=== PATIENT | female | born 1990 | race Hispanic/Latino ===

== ENCOUNTER 2019-03-12 18:16 | Emergency (ER) | payer MEDICAID ==
[2019-03-12 18:54] LABS: BASOPHILS % (AUTO) 0.5 % (0.0-5.0); EOSINOPHILS % (AUTO) 1.5 % (0.0-8.0); HEMATOCRIT 50.7 % (36-48); LYMPHOCYTES % (AUTO) 16.6 % (21.0-51.0); MEAN CORPUSCULAR HEMOGLOBIN 29.8 pg (27.0-33.0); MEAN CORPUSCULAR HGB CONC 33.8 g/dL (32.0-36.0); MEAN CORPUSCULAR VOLUME 88.2 fL (79-99); MONOCYTES % (AUTO) 3.7 % (3.0-13.0); NEUTROPHILS % (AUTO) 77.7 % (40.0-77.0); PLATELET COUNT (AUTO) 337 K/uL (130-400); RED BLOOD CELL COUNT(AUTO) 5.75 MIL/uL (4.00-5.50); RED CELL DISTRIBUTION WIDTH 13.7 % (11.0-15.5); WHITE BLOOD COUNT (AUTO) 13.2 K/uL (4.8-10.8)
[2019-03-12 18:58] LABS: BILIRUBIN,URINE Moderate (NEGATIVE); COLOR,URINE Dark Yellow (YELLOW); GLUCOSE, URINE (UA) Negative (NEGATIVE); KETONES,URINE Trace mg/dL (NEGATIVE); LEUKOCYTE ESTERASE ,URINE Small (NEGATIVE); NITRATE,URINE Positive (NEGATIVE); OCCULT BLOOD,URINE Trace (NEGATIVE); PH,URINE 5.5 (5.0-8.0); PROTEIN,URINE 300 mg/dL (NEGATIVE)
[2019-03-12 18:59] LABS: APPEARANCE,URINE CLOUDY (CLEAR)
[2019-03-12 19:00] LABS: HCG,QUAL RESULT NEGATIVE (NEGATIVE)
[2019-03-12 19:05] LABS: CREATININE 0.9 mg/dL (0.5-1.5); POTASSIUM 3.5 mmol/L (3.5-5.1)
[2019-03-12 19:05] LABS: AMPHET/METH SCREEN,URINE NEGATIVE (NEGATIVE); BARBITURATE SCREEN, URINE NEGATIVE (NEGATIVE); BENZODIAZEPINES SCREEN,URINE NEGATIVE (NEGATIVE); CANNABINOID SCREEN,URINE NEGATIVE (NEGATIVE); COCAINE SCREEN,URINE NEGATIVE (NEGATIVE); OPIATE SCREEN,URINE NEGATIVE (NEGATIVE); PHENCYCLIDINE SCREEN,URINE NEGATIVE (NEGATIVE)
[2019-03-12 19:09] LABS: ALBUMIN 3.6 g/dL (3.5-5.0); BILIRUBIN,TOTAL 1.2 mg/dL (0.2-1.0); TOTAL PROTEIN, SERUM 7.2 g/dL (6.0-8.3)
[2019-03-12] MEDS ORDERED: SODIUM CHLORIDE 0.9% 1000ML 1,000 ML IV ONE (19:12)
[2019-03-12 19:19] LABS: BACTERIA,URINE Moderate /HPF (None Seen); SQUAMOUS EPITHELIAL CELL,UR Moderate /HPF (0-2)
[2019-03-12 19:22] LABS: MUCUS,URINE Moderate LPF (None Seen)
== END 2019-03-12 19:48 | disposition home or self-care (01) ==
LOC: EDH 18:16
DX: T67.1XXA Heat syncope, initial encounter (principal); N39.0 Urinary tract infection, site not specified; Z98.890 Other specified postprocedural states; X58.XXXA Exposure to other specified factors, initial encounter; Y93.89 Activity, other specified; Y92.89 Other specified places as the place of occurrence of the external cause; Y99.8 Other external cause status
CPT/HCPCS: 36415; 80053; 80305; 81001; 81025; 85025; 93005; 99285; J7030

== ENCOUNTER 2019-07-27 12:14 | Emergency (ER) | payer MEDICAID, OTHER ==
[2019-07-27 12:38] LABS: BASOPHILS % (AUTO) 1.5 % (0.0-5.0); EOSINOPHILS % (AUTO) 3.5 % (0.0-8.0); HEMATOCRIT 40.3 % (36-48); LYMPHOCYTES % (AUTO) 27.8 % (21.0-51.0); MEAN CORPUSCULAR HEMOGLOBIN 29.1 pg (27.0-33.0); MEAN CORPUSCULAR HGB CONC 33.9 g/dL (32.0-36.0); MEAN CORPUSCULAR VOLUME 85.9 fL (79-99); NEUTROPHILS % (AUTO) 53.2 % (40.0-77.0); NUCLEATED RED BLOOD CELLS 0.1 % (0.0-0.19); PLATELET COUNT (AUTO) 268 K/uL (130-400); RED BLOOD CELL COUNT(AUTO) 4.69 MIL/uL (4.00-5.50); RED CELL DISTRIBUTION WIDTH 13.8 % (11.0-15.5); WHITE BLOOD COUNT (AUTO) 5.3 K/uL (4.8-10.8)
[2019-07-27 12:43] LABS: APPEARANCE,URINE Cloudy (CLEAR); BILIRUBIN,URINE Negative (NEGATIVE); COLOR,URINE Yellow (YELLOW); GLUCOSE, URINE (UA) Negative (NEGATIVE); KETONES,URINE 15 mg/dL (NEGATIVE); LEUKOCYTE ESTERASE ,URINE Trace (NEGATIVE); NITRATE,URINE Negative (NEGATIVE); OCCULT BLOOD,URINE Negative (NEGATIVE); PH,URINE 6.5 (5.0-8.0); PROTEIN,URINE Negative (NEGATIVE)
[2019-07-27 12:47] LABS: CREATININE 0.8 mg/dL (0.5-1.5); POTASSIUM 3.9 mmol/L (3.5-5.1)
[2019-07-27 12:51] LABS: HCG,QUAL RESULT NEGATIVE (NEGATIVE)
[2019-07-27 12:52] LABS: ALBUMIN 3.4 g/dL (3.5-5.0); BILIRUBIN,TOTAL 0.6 mg/dL (0.2-1.0); TOTAL PROTEIN, SERUM 6.9 g/dL (6.0-8.3)
[2019-07-27 12:58] LABS: BACTERIA,URINE Rare /HPF (None Seen); MUCUS,URINE Rare LPF (None Seen); RBC,URINE 0-1 /HPF (0-1); SQUAMOUS EPITHELIAL CELL,UR Rare /HPF (0-2); WBC,URINE 0-1 /HPF (0-1)
[2019-07-27] MEDS ORDERED: ACETAMINOPHEN EXTRA STRENGTH 500 MG TABLET ONE (13:31)
== END 2019-07-27 13:42 | disposition home or self-care (01) ==
LOC: EDH 12:14
DX: J10.1 Influenza due to other identified influenza virus with other respiratory manifestations (principal); Z87.891 Personal history of nicotine dependence; Z98.890 Other specified postprocedural states
CPT/HCPCS: 36415; 80053; 81001; 81025; 85025; 87804

== ENCOUNTER 2024-07-28 14:19 | Emergency (ER) | payer SELFPAY ==
[~2024-07-28] VITALS: Ht 160 cm; Wt 113.4 kg
[2024-07-28 15:49] LABS: BASOPHILS # (AUTO) 0.06 K/uL (0.00-0.20); BASOPHILS % (AUTO) 0.4 % (0.0-5.0); EOSINOPHILS # (AUTO) 0.01 K/uL (0.00-0.70); EOSINOPHILS % (AUTO) 0.1 % (0.0-8.0); HEMATOCRIT 34.7 % (36-48); LYMPHOCYTES # (AUTO) 1.5 K/uL (1.0-4.8); LYMPHOCYTES % (AUTO) 9.3 % (21.0-51.0); MEAN CORPUSCULAR HEMOGLOBIN 20.4 pg (27.0-33.0); MEAN CORPUSCULAR VOLUME 68.2 fL (79-99); MONOCYTES # (AUTO) 1.2 K/uL (0.1-1.0); MONOCYTES % (AUTO) 7.4 % (3.0-13.0); NEUTROPHILS # (AUTO) 13.2 K/uL (1.8-7.7); NEUTROPHILS % (AUTO) 82.2 % (40.0-77.0); PLATELET COUNT (AUTO) 463 K/uL (130-400); RED BLOOD CELL COUNT(AUTO) 5.09 MIL/uL (4.00-5.50); RED CELL DISTRIBUTION WIDTH 18.8 % (11.0-15.5); WHITE BLOOD COUNT (AUTO) 16.1 K/uL (4.8-10.8)
[2024-07-28 16:03] LABS: CREATININE 0.9 mg/dL (0.5-1.0); POTASSIUM 3.4 mmol/L (3.5-5.1)
[2024-07-28 16:07] LABS: RAPID GROUP A STREP negative (NEGATIVE)
[2024-07-28 16:11] LABS: COVID19 (SARS ANTIGEN RAPID) PRESUMPTIVE NEGATIVE (NEGATIVE); INFLUENZA TYPE A Negative For Type A (NEGATIVE); INFLUENZA TYPE B Negative For Type B (NEGATIVE)
--- NOTE | 2024-07-28 16:21 | HMCIMG ---
CHEST 1VW REASON: sob COMPARISON: 08/08/2017 FINDINGS: There is perihilar infiltrate on the right extending into the right lower lobe, consistent with pneumonia. Left lung is clear. Heart size is normal. There is no vascular congestion or pleural effusion. IMPRESSION: 1. Infiltrate in right perihilar region extending into the right lower lobe consistent with pneumonia.
--- NOTE | 2024-07-28 16:32 | ERN ---
General Chief Complaint: Fever Stated Complaint: BODY AND HEAD PAIN, CHILLS, FEVER, NAUSEA,COUGH Time Seen by MD: 14:27 Time Seen by Midlevel: 14:27 Source: patient History of Present Illness Initial Comments Patient is a 34-year-old female with no significant past medical history presenting to the emergency department with complaints of intermittent fevers, generalized body weakness, cough and congestion since Saturday x3 days ago. Patient reports recorded fevers at home as high as 103.0. Denies any sick contacts. Denies any other concerns at this time. Allergies: Coded Allergies: No Known Drug Allergies (Unverified Allergy, Unknown, 07/28/24) Home Meds Active Scripts Methylprednisolone (Medrol) 4 Mg Tab.ds.pk, 1 TAB PO AD for 6 Days, #21 TAB 0 Refills 6 on day 1 then reduce by one tablet daily until gone Prov:EVELYN ASH 07/28/24 Azithromycin (Azithromycin) 250 Mg Tablet, 1 TAB PO AD for 5 Days, #6 TAB 0 Refills 2 the first day followed by 1 for days 2-5 Prov:EVELYN ASH 07/28/24 Amoxicillin/Potassium Clav (Amox Tr-K Clv 875-125 mg Tab) 875 Mg-125 Mg Tablet, 1 EACH PO BID for 7 Days, #14 TAB 0 Refills Prov:EVELYN ASH 07/28/24 Past Medical History Past Medical History: No Pertinent History Past Surgical History: ROS Dictation CONSTITUTIONAL: Negative except for HPI HEAD/FACE: Negative except for HPI EENT: Negative except for HPI RESPIRATORY: Negative except for HPI GASTROINTESTINAL/ABDOMINAL: Negative except for HPI GENITOURINARY: Negative except for HPI MUSCULOSKELETAL: Negative except for HPI INTEGUMENTARY: Negative except for HPI NEUROLOGICAL/PSYCH: Negative except for HPI HEMATOLOGIC/LYMPHATIC: Negative except for HPI All Systems Negative, Except as noted above. 13 point review of systems assessed and all negative except for above. Physical Exam Physical Exam Dictation Vital Signs reviewed General Appearance: Alert, oriented x 3, no acute distress, well developed, nourished. Head and Face: non-traumatic. Eyes: PERRL, pink conjunctivas, eyelid no trauma, anterior chamber with arcus senilis. Ears: Pinnas intact and no signs of trauma or erythema ear canals clear and no discharge TM no erythema Nose: No discharge, no bleeding. Oropharynx: Mouth normal, tongue pink, pharynx clear,no erythema, tonsils no exudates, no abscesses noted, mucous membrane moist Neck: Supple, non-tender, no thyromegaly, no masses, no JVD, no bruits Breast:Deferred Chest:No tenderness, no crepitus, no paradoxical movement, no retractions Lungs:Clear, well-ventilated, symmetric, no rales, no wheezing, no rhonchi, no stridor, good breath sounds bilaterally Heart: Regular rate, regular rhythm, no murmur, no gallops Vascular: no peripheral edema, Abdomen: Soft, positive bowel sounds, nondistended, no guarding, nontender, no rebound, no masses no hepatomegaly, no splenomegaly, no Burnette's sign, no hernias. Rectal: Deferred Genital: Deferred Neurological: Normal speech, motor function intact, sensory function intact Musculoskeletal: Neck nontender, full range of motion, back nontender, full range of motion, Extremities: nontender, full range of motion Skin: Color pink, dry, no turgor, no rash, no lacerations, no abrasions, no contusions. Lymphatic: Deferred Results Laboratory and Microbiology Lab and Micro Result Laboratory Tests Test 07/28/24 15:06 07/28/24 15:25 Influenza Type A Antigen Negative For Type A Influenza Type B Antigen Negative For Type B SARS-CoV-2 Antigen (Rapid) PRESUMPTIVE NEGATIVE Group A Streptococcus Rapid negative (NEGATIVE) White Blood Count 16.1 K/uL (4.8-10.8) H Red Blood Count 5.09 MIL/uL (4.00-5.50) Hemoglobin 10.4 g/dL (12.0-16.0) L Hematocrit 34.7 % (36-48) L Mean Corpuscular Volume 68.2 fL (79-99) L Mean Corpuscular Hemoglobin 20.4 pg (27.0-33.0) L Mean Corpuscular Hemoglobin Concent 30.0 g/dL (32.0-36.0) L Red Cell Distribution Width 18.8 % (11.0-15.5) H Platelet Count 463 K/uL (130-400) H Mean Platelet Volume 10.7 fL (7.5-10.5) H Immature Granulocyte % (Auto) 0.6 % (0-1) Neutrophils (%) (Auto) 82.2 % (40.0-77.0) H Lymphocytes (%) (Auto) 9.3 % (21.0-51.0) L Monocytes (%) (Auto) 7.4 % (3.0-13.0) Eosinophils (%) (Auto) 0.1 % (0.0-8.0) Basophils (%) (Auto) 0.4 % (0.0-5.0) Neutrophils # (Auto) 13.2 K/uL (1.8-7.7) H Lymphocytes # (Auto) 1.5 K/uL (1.0-4.8) Monocytes # (Auto) 1.2 K/uL (0.1-1.0) H Eosinophils # (Auto) 0.01 K/uL (0.00-0.70) Basophils # (Auto) 0.06 K/uL (0.00-0.20) Absolute Immature Granulocyte (auto 0.10 K/uL (0-1) Nucleated Red Blood Cells 0.0 % (0.0-0.19) White Cell Morphology Comment See comments Red Blood Cell Morphology See comments Sodium Level 133 mmol/L (136-145) L Potassium Level 3.4 mmol/L (3.5-5.1) L Chloride Level 97 mmol/L (101-111) L Carbon Dioxide Level 27 mmol/L (21-32) Blood Urea Nitrogen 10 mg/dL (7-18) Creatinine 0.9 mg/dL (0.5-1.0) Glomerular Filtration Rate Calc 85 mL/min (>90) Random Glucose 112 mg/dL (70-105) H Lactic Acid Level 1.8 mmol/L (0.8-2.5) Total Calcium 9.0 mg/dL (8.5-10.1) Troponin I High Sensitivity 7 ng/L (4-50) Procalcitonin 0.13 ng/mL (0.05-0.5) Serum Test, Qualitative NEGATIVE (NEGATIVE) Labs Reviewed?: Yes MDM MDM: Patient is a 34-year-old female with no significant past medical history presenting to the emergency department with complaints of intermittent fevers, generalized body weakness, cough and congestion since Saturday x3 days ago. Patient reports recorded fevers at home as high as 103.0. Denies any sick contacts. Denies any other concerns at this time. On physical examination patient is in no acute distress. Lung examination reveals crackles to the right lower lobe however the remainder of her physical examination is unremarkable. Her initial vital signs are remarkable for a temperature of 101.3. A heart rate of 116 beats per minute. A blood pressure of 122/78. O2 saturation is 98% on room air. On physical examination patient is in no acute respiratory distress. Given that patient is tachycardic and febrile sepsis alert was called overhead any full septic workup was initiated. Initial CBC shows a white count of 16.1. Hemoglobin is stable at 10.4. Platelet count is 463. Her chemistries reveal a sodium of 133, potassium of 3.4, and a chloride of 97. Lactic acid is normal at 1.8. Procalcitonin is negative. Her cardiac enzymes are negative. Her respiratory swabs are negative. Her chest x-ray does reveal a consolidation of the right lower lobe which is consistent with pneumonia. Given that patient is not in any respiratory distress. She has a curb 65 score of 0. Patient will be treated outpatient. In the emergency department she was given 1 g of Rocephin along with IV fluids. Patient will be discharged home on Augmentin and azithromycin. She was advised that if she does not improve over the next [id number] hours she was to report to the ER for further evaluation. Differential diagnosis: Pneumonia, viral syndrome, upper respiratory infection, strep There are no social concerns with this patient. Prescription drug management Prescriptions will include: Amoxicillin and azithromycin Medical management and examination interpretation discussions were had by me with other qualified healthcare professionals as indicated for the patient's care. ED Course Orders Procedure Category Date Status Time Covid19 (Sars Antigen LAB 07/28/24 Complete Rapid) 15:03 Influenza Type A & B, LAB 07/28/24 Complete Rapid 15:03 Rapid (Group A Strep) LAB 07/28/24 Complete 15:03 Cbc With Differential LAB 07/28/24 Complete 15:05 Basic Metabolic Panel LAB 07/28/24 Complete 15:05 Blood Cult DENNIS 07/28/24 In Process 15:05 Chest 1vw RAD 07/28/24 Resulted 15:05 Lactic Acid LAB 07/28/24 Complete 15:05 Procalcitonin LAB 07/28/24 Complete 15:05 Troponin I High LAB 07/28/24 Complete Sensitivity 15:05 Testing, LAB 07/28/24 Complete Serum Hcg 15:05 Acetaminophen 500mg PHA 07/28/24 Complete Tab (Tylenol 500mg T 15:30 0.9%Nacl 1000ml (Ns PHA 07/28/24 Complete 1000ml) 16:30 Ceftriaxone 1g Vial PHA 07/28/24 Complete (Rocephine 1g Inj) 16:30 Ketorolac PHA 07/28/24 Complete Tromethamine 15mg/Ml 16:30 Current Medications Medications (Trade) Dose Ordered Sig/Nkechi Route PRN Reason Start Time Stop Time Status Last Admin Dose Admin Acetaminophen (TYLenol 500MG TAB) 1,000 mg ONCE ONCE PO 07/28/24 15:30 07/28/24 15:31 DC 07/28/24 18:26 Ceftriaxone Sodium (ROCEphine 1G INJ) 1 gm ONCE ONCE IVPB 07/28/24 16:30 07/28/24 16:31 DC 07/28/24 18:26 Ketorolac Tromethamine (toRADol) 15 mg ONCE ONCE IV 07/28/24 16:30 07/28/24 16:31 DC 07/28/24 18:26 Sodium Chloride 1,000 ml @ 0 mls/hr ONCE ONCE IV 07/28/24 16:30 07/28/24 16:31 DC 07/28/24 18:26 Vital Signs Date Time Temp Pulse Resp B/P (MAP) Pulse Ox O2 Delivery O2 Flow Rate FiO2 07/28/24 20:10 100.4 90 20 105/61 98 Room Air* 0 07/28/24 19:50 100.8 98 20 109/51 98 Room Air* 0 07/28/24 19:11 101.5 98 20 113/67 100 Room Air* 0 07/28/24 18:34 102.9 114 22 108/44 99 Room Air* 0 07/28/24 14:58 101.3 116 16 122/78 98 Room Air* 0 07/28/24 14:58 101.3 116 22 122/78 98 Room Air 0 5:13 PM Patient remains in the lobby. Anitibiotics ordered at 4:31PM. Pt has not received IV fluids, Tylenol, Ketorolac, or Rocephin. X-ray shows a right lower lobe pneumonia. [facility] [address] [address] IMAGING REPORT Signed PATIENT: RACHEL DAVIDSON MR#: [id number] : 1990 SEX: F AGE: 34 LOCATION: [facility] ORDER 06 STATUS: REG ER REPORT#: [id number] SERVICE 150 REASON: sob ORDERING PHYSICIAN: EVELYN ASH PROCEDURE: CXR1VW - CHEST 1VW CHEST 1VW REASON: sob COMPARISON: 08/08/2017 FINDINGS: There is perihilar infiltrate on the right extending into the right lower lobe, consistent with pneumonia. Left lung is clear. Heart size is normal. There is no vascular congestion or pleural effusion. IMPRESSION: 1. Infiltrate in right perihilar region extending into the right lower lobe consistent with pneumonia. DICTATED BY: AZAR OROZCO MD DATE: 07/28/241617 ELECTRONICALLY SIGNED BY: AZAR OROZCO MD DATE: 07/28/24 162 DX & DISP Disposition: Discharge Departure Impression: Primary Impression: Pneumonia Condition: Stable Scripts Methylprednisolone (Medrol) 4 Mg Tab.ds.pk 1 TAB PO AD for 6 Days, #21 TAB 0 Refills 6 on day 1 then reduce by one tablet daily until gone Prov: EVELYN ASH 07/28/24 Azithromycin (Azithromycin) 250 Mg Tablet 1 TAB PO AD for 5 Days, #6 TAB 0 Refills 2 the first day followed by 1 for days 2-5 Prov: EVELYN ASH 07/28/24 Amoxicillin/Potassium Clav (Amox Tr-K Clv 875-125 mg Tab) 875 Mg-125 Mg Tablet 1 EACH PO BID for 7 Days, #14 TAB 0 Refills Prov: EVELYN ASH 07/28/24 Additional Instructions: Your chest x-ray is remarkable for a right lower lobe pneumonia. You were given IV antibiotics in the emergency department. I have given you a prescription for Augmentin and azithromycin for outpatient management. You may take Tylenol and Motrin for fever. Follow up with your primary care doctor next 2-3 days for repeat evaluation. Return to the ER for any new or worsening symptoms Referrals: ROLLY IRELAND (PCP) Time of Disposition: 19:24 I have reviewed the case, and I agree with, Diagnosis and Plan I performed the substantive portion of the visit. I have reviewed and personally made and approve the management plan that is documented in the note by myself or the TRACEE. I acknowledge for responsibility for the patient's management plan. EVELYN ASH Jul 28, 2024 16:32 MAIA RUIZ DO Jul 30, 2024 10:34
[2024-07-28] MEDS: acetaMINOPHEN 500 MG TABLET PO ONE (18:26)
[2024-07-28] MEDS: cefTRIAXone 1G VIAL IVPB ONE (18:26)
[2024-07-28] MEDS: 0.9%NACL 1000ML 1,000 ML IV ONE (18:26)
[2024-07-28] MEDS: ketOROlac 15MG/ML VIAL (15MG/ML) IV ONE (18:26)
[2024-07-28] MEDS ORDERED: AMOX1TAB16 PO (19:30)
[2024-07-28] MEDS ORDERED: AZIT250T9 PO (19:30)
[2024-07-28] MEDS ORDERED: METH4TAB3 PO (19:30)
[2024-07-28 19:51] VITALS: TEMP 100.8
[2024-07-28 20:10] VITALS: BP 105/61; PULSE 90; RESP 20; TEMP 100.4; O2SAT 98
== END 2024-07-28 20:12 | disposition home or self-care (01) ==
LOC: EDH 14:19
DX: J18.9 Pneumonia, unspecified organism (principal); Z20.822 Contact with and (suspected) exposure to COVID-19; Z79.899 Other long term (current) drug therapy; Z98.890 Other specified postprocedural states
CPT/HCPCS: 99285; 96365; 71045; 96375; 87426; 84484; 80048; 84703; 85025; 87040 ×2; 87880; 87804 ×2; 83605; 36415; 84145; J7030; J0696; J1885